=== PATIENT | male | born 1945 | race Caucasian/White ===

== ENCOUNTER → 2018-06-13 | Outpatient (CLI) | payer MEDICARE | END | disposition home or self-care (01) | LOC: CFH 15:53 | PROVIDERS: ATTEND Orthopaedic Surgery | DX: M71.22 Synovial cyst of popliteal space [Baker], left knee (principal); M25.462 Effusion, left knee ==

== ENCOUNTER → 2018-07-11 | Outpatient (CLI) | payer MEDICARE ==
[~2018-07-11] MED LIST: AMLO5TAB7 PO; ASPI-496 PO; CHOL10003 PO; GLUC15006 PO; LISI40TA PO; MULT-717 PO; POTA10TA17 PO; ROSU10TA PO
[2018-07-11 14:11] LABS: ALANINE AMINOTRANSFERASE 20 U/L (12-78); ALBUMIN 4.2 g/dL (3.4-5.0); ANION GAP 10 mmol/L (5-15); CALCIUM 9.5 mg/dL (8.5-10.1); CHLORIDE 107 mmol/L (98-107); CREATININE 1.39 mg/dL (0.7-1.3)
[2018-07-11 14:13] LABS: ALKALINE PHOSPHATASE 66 U/L (45-117); BILIRUBIN,TOTAL 0.7 mg/dL (0.2-1.0); TOTAL PROTEIN 7.7 g/dL (6.4-8.2)
[2018-07-11 14:29] LABS: MICROSCOPIC NOT IND
[2018-07-11 14:42] LABS: CULTURE INDICATED? NO
== END | disposition home or self-care (01) ==
LOC: STAR 12:36
PROVIDERS: ATTEND Orthopaedic Surgery
DX: Z01.818 Encounter for other preprocedural examination (principal); M25.562 Pain in left knee
CPT/HCPCS: 36415; 80053; 81003; 87081; 93005

== ENCOUNTER 2018-08-03 12:30 | Day surgery (SDC) | payer MEDICARE ==
[~2018-08-03] VITALS: Ht 172.7 cm; Wt 84.2 kg
[~2018-08-03 12:30] MED LIST changes: +CLINDAMYCIN 150 MG/ML, 6ML ONE
[2018-08-03] MEDS ORDERED: FENTANYL PF 250 MCG/5ML ONE (12:39)
[2018-08-03] MEDS ORDERED: MIDAZOLAM 1 MG/ML, 2ML ONE (12:39)
[2018-08-03] MEDS ORDERED: GABAPENTIN 300 MG CAPSULE ONE (12:56)
[2018-08-03] MEDS ORDERED: ACETAMINOPHEN 500 MG TABLET ONE (12:56)
[2018-08-03] MEDS ORDERED: GABAPENTIN 300 MG CAPSULE PO ONE (13:00)
[2018-08-03] MEDS ORDERED: ACETAMINOPHEN 500 MG TABLET PO ONE (13:00)
[2018-08-03] MEDS ORDERED: LACTATED RINGERS 1,000 ML IV SCH ×3 (13:00→13:24)
[2018-08-03] MEDS ORDERED: VANCOMYCIN PER PHARMACY MC PRN (13:30)
[2018-08-03] MEDS ORDERED: VANCOMYCIN 1,600 MG in SODIUM CHLORIDE 0.9% 250 ML IV ONE (13:30)
[2018-08-03] MEDS ORDERED: PHARMACOKINETIC CONSULTATION MC ONE (13:30)
[2018-08-03] MEDS ORDERED: BUPIVACAINE/PF 0.5% ONE (13:33)
[2018-08-03] MEDS ORDERED: TRANEXAMIC ACID 100 MG/ML, 10ML ONE (13:33)
[2018-08-03] MEDS ORDERED: EPINEPHRINE 1 MG/ML, 1ML ONE (13:34)
[2018-08-03] MEDS ORDERED: D5%-0.45% NACL 1,000 ML IV SCH (13:42)
[2018-08-03] MEDS ORDERED: SUCCINYLCHOLINE 20 MG/ML, 10ML ONE (13:43)
[2018-08-03] MEDS ORDERED: PROPOFOL 10 MG/ML, 20ML ONE (13:43)
[2018-08-03] MEDS ORDERED: DEXAMETHASONE 4 MG/ML, 1ML ONE (13:43)
[2018-08-03] MEDS ORDERED: GLYCOPYRROLATE 0.2MG/1ML, 5ML ONE (13:43)
[2018-08-03] MEDS ORDERED: CEFAZOLIN 1,000 MG ONE (13:43)
[2018-08-03] MEDS ORDERED: LIDOCAINE PF 2%, 5ML ONE (13:43)
[2018-08-03] MEDS ORDERED: ONDANSETRON 2MG/ML, 2ML ONE (13:43)
[2018-08-03] MEDS ORDERED: PROMETHAZINE 12.5 MG SUPP PR PRN (14:00)
[2018-08-03] MEDS ORDERED: ZOLPIDEM 5MG TABLET PO PRN (14:00)
[2018-08-03] MEDS ORDERED: MAGNESIUM HYDROXIDE 8%, 30ML UDC PO PRN (14:00)
[2018-08-03] MEDS ORDERED: SENNA/DOCUSATE TABLET PO PRN (14:00)
[2018-08-03] MEDS ORDERED: ACETAMINOPHEN 650 MG/20.3 ML UDC PO PRN (14:00)
[2018-08-03] MEDS ORDERED: CEFAZOLIN PMX 2GM/50ML 50 ML IVPB SCH (14:00)
[2018-08-03] MEDS ORDERED: morphine SULFATE 10 MG/ML, 1ML IV PRN (14:00)
[2018-08-03] MEDS ORDERED: DIAZEPAM 5 MG TABLET PO PRN (14:00)
[2018-08-03] MEDS ORDERED: ONDANSETRON 4 MG TABLET PO PRN (14:00)
[2018-08-03] MEDS ORDERED: DIPHENHYDRAMINE 50 MG CAPSULE PO PRN (14:00)
[2018-08-03] MEDS ORDERED: BISACODYL 10 MG SUPP PR PRN (14:00)
[2018-08-03] MEDS ORDERED: ONDANSETRON 2MG/ML, 2ML IV PRN ×2 (14:00→15:00)
[2018-08-03] MEDS ORDERED: DIAZEPAM 5 MG/ML, 2ML IVPush PRN (15:00)
[2018-08-03] MEDS ORDERED: PROCHLORPERAZINE 5 MG/ML, 2ML IM PRN (15:00)
[2018-08-03] MEDS ORDERED: HYDROcodone/APAP 10/325 MG TABLET PO SCH (15:00)
[2018-08-03] MEDS ORDERED: ONDANSETRON ODT 8 MG PO PRN (15:00)
[2018-08-03] MEDS ORDERED: FENTANYL PF 100 MCG/2ML IV PRN (15:00)
[2018-08-03] MEDS ORDERED: OXYcodone 5 MG/5 ML ORAL.SOL UDC PO PRN (15:00)
[2018-08-03] MEDS ORDERED: MORPHINE SULFATE 4 MG/ML, 1ML IVPush PRN (15:00)
[2018-08-03] MEDS ORDERED: HYDROmorphone 1 MG/ML, 1ML IV PRN (15:00)
[2018-08-03] MEDS ORDERED: DOCUSATE 100 MG CAPSULE PO SCH (21:00)
[2018-08-04] MEDS ORDERED: CHOLECALCIFEROL 1,000 UNIT TABLET PO SCH (09:00)
[2018-08-04] MEDS ORDERED: LISINOPRIL 20 MG TABLET PO SCH (09:00)
[2018-08-04] MEDS ORDERED: AMLODIPINE 5 MG TABLET PO SCH (09:00)
[2018-08-04] MEDS ORDERED: POTASSIUM CHLORIDE 10 MEQ TABLET.ER PO SCH (09:00)
[2018-08-04] MEDS ORDERED: LACTATED RINGERS 1,000 ML IV SCH (13:18)
[2018-08-04] MEDS ORDERED: KETOROLAC 30 MG/1 ML IV SCH (14:00)
[2018-08-04] MEDS ORDERED: ASPIRIN 325 MG TABLET EC PO SCH (18:00)
[2018-08-04] MEDS ORDERED: ATORVASTATIN 20 MG TABLET PO SCH (21:00)
== END 2018-08-03 17:00 | disposition home or self-care (01) ==
LOC: OUT 12:30 → ORIP 13:42 → UNDOADMIN 13:42 → OUT 17:00
PROVIDERS: ATTEND Orthopaedic Surgery
DX: M17.12 Unilateral primary osteoarthritis, left knee (principal); I10 Essential (primary) hypertension; Z79.82 Long term (current) use of aspirin; Z79.899 Other long term (current) drug therapy; Z87.891 Personal history of nicotine dependence; Z72.89 Other problems related to lifestyle
CPT/HCPCS: 27446; 64447; C1713; C1776; J0171; J0330; J0690; J1100; J2250; J2405; J2704; J3010; J3370; J3490; J7050; J7120